=== PATIENT | female | born 1975 | race Caucasian/White ===

== ENCOUNTER 2018-01-27 16:34 | Emergency (ER) | payer OTHER ==
[~2018-01-27] VITALS: Ht 172.7 cm; Wt 82.1 kg
[~2018-01-27 16:34] MED LIST: NAPR550 PO
[2018-01-27 17:26] LABS: Source, Urine Clean Catch
[2018-01-27 17:34] LABS: Appearance, Urine Clear (Clear); Bilirubin, Urine Neg (Neg); Blood, Urine 3+ (Neg); Color, Urine Yellow (P-Yellow); Glucose Qualitative, Urine Neg (Neg); Ketones, Urine 1+ (Neg); Leukocyte Esterase, Urine 1+ (Neg); Nitrite, Urine Neg (Neg); Protein, Urine Neg (Neg); Specific Gravity, Urine 1.025 (1.003-1.022); Urobilinogen, Urine NORM (Normal)
[2018-01-27 17:40] LABS: BASOPHILS ABSOLUTE AUTO 0.08 K/mm3 (0.00-0.23); BASOPHILS PERCENT AUTO 1 % (0-2); EOSINOPHILS ABSOLUTE AUTO 0.25 K/mm3 (0.00-0.68); EOSINOPHILS PERCENT AUTO 3 % (0-6); Hematocrit 40.3 % (33.0-51.0); Hemoglobin 13.6 g/dL (11.5-16.0); IMMATURE GRAN ABSOLUTE AUTO 0.02 K/mm3 (0.00-0.10); IMMATURE GRAN PERCENT AUTO 0 % (0-1); LYMPHOCYTES ABSOLUTE AUTO 4.25 K/mm3 (0.84-5.20); LYMPHOCYTES PERCENT AUTO 43 % (21-46); MONOCYTES ABSOLUTE AUTO 0.75 K/mm3 (0.16-1.47); MONOCYTES PERCENT AUTO 8 % (4-13); Mean Corpuscular HGB 30.1 pg (26.0-34.0); Mean Corpuscular HGB Conc 33.7 g/dL (31.5-36.5); Mean Corpuscular Volume 89 fL (80-100); Mean Platelet Volume 11.4 fL (9.1-12.4); NEUTROPHILS ABSOLUTE AUTO 4.63 K/mm3 (1.96-9.15); NEUTROPHILS PERCENT AUTO 46 % (41-73); Platelet Count 307 K/mm3 (150-400); RDW Coefficient Variation 13.1 % (11.7-14.2); Red Blood Cell Count 4.52 M/mm3 (3.80-5.20); White Blood Cell Count 9.98 K/mm3 (4.00-11.30)
[2018-01-27 17:52] LABS: Mucus Light ([, 0-Heavy])
[2018-01-27 17:53] LABS: Bacteria Few /hpf; Squamous Epithelial Cells Few /hpf (Few); White Blood Cells, Urine 0-2 /hpf (0-5)
[2018-01-27 17:55] LABS: Alanine Aminotransfer (ALT/SGP 23 U/L (12-78); Albumin, Blood 4.3 g/dL (3.4-5.0); Albumin/Globulin Ratio 1.1 (0.8-1.8); Alk Phos 64 U/L (50-136); Anion Gap 9 mmol/L (6-16); Aspartate Aminotrans (AST/SGOT 15 U/L (12-37); Bilirubin, Total 0.3 mg/dL (0.1-1.0); Blood Urea Nitrogen 13 mg/dL (8-24); Bun/Creatinine Ratio 15.9 (12.0-20.0); CO2, Blood 22 mmol/L (21-32); Chloride, Blood 108 mmol/L (98-108); Creatinine, Blood 0.82 mg/dL (0.40-1.00); Glomerular Filtration Rate >60 (60-); Glucose, Blood 86 mg/dL (70-99); Potassium, Blood 3.5 mmol/L (3.5-5.5); Sodium, Blood 139 mmol/L (136-145); Total Protein, Blood 8.3 g/dL (6.4-8.2)
[2018-01-27] MEDS ORDERED: Percocet 10-321 EACH PO (19:04)
[2018-01-27] MEDS ORDERED: CEPH500 PO (19:04)
[2018-01-27] MEDS ORDERED: Doxycycline Hy100 MG PO (19:04)
== END 2018-01-27 19:20 | disposition home or self-care (01) ==
LOC: ER 16:34
PROVIDERS: Emergency Medicine
DX: N39.0 Urinary tract infection, site not specified (principal); F17.210 Nicotine dependence, cigarettes, uncomplicated
CPT/HCPCS: 36415; 74177; 80053; 81001; 81025; 85025; 87086; 96361; 96372; 96374; 96375; 99284-25; J0696; J2405; J3010; J7030; Q9967

== ENCOUNTER → 2018-02-03 | Outpatient (CLI) | payer OTHER ==
[~2018-02-03] MED LIST changes: +CEPH500 PO; +Doxycycline Hy100 MG PO; +Percocet 10-321 EACH PO
[2018-02-10 18:07] LABS: CHLAMYDIA BY NAA Negative (Negative); GONOCOCCUS BY NAA Negative (Negative); HPV 16 Negative (Negative); HPV 18 Negative (Negative); HPV OTHER HR TYPES Negative (Negative); TRICH VAG BY NAA Positive (Negative)
== END ==
LOC: LAB 15:27 → LAB SHORT 15:27
PROVIDERS: Obstetrics & Gynecology
DX: Z01.419 Encounter for gynecological examination (general) (routine) without abnormal findings (principal); Z11.3 Encounter for screening for infections with a predominantly sexual mode of transmission
CPT/HCPCS: 87491; 87591; 87624; 87661; G0123

== ENCOUNTER → 2018-07-13 | Outpatient (CLI) | payer OTHER ==
[2018-07-16 00:10] LABS: CHLAMYDIA TRACHOMATIS, NAA Negative (Negative); NEISSERIA GONORRHOEAE, NAA Negative (Negative)
== END | disposition home or self-care (01) ==
LOC: LAB 17:28 → LAB SHORT 17:28
PROVIDERS: Nurse Practitioner Family
DX: R10.2 Pelvic and perineal pain (principal)
CPT/HCPCS: 87086; 87491; 87591

== ENCOUNTER → 2020-12-25 | Outpatient (CLI) | payer OTHER ==
[2020-12-28 14:12] LABS: CHLAMYDIA BY NAA Negative (Negative); GONOCOCCUS BY NAA Negative (Negative); HPV 16 Negative (Negative); HPV 18 Negative (Negative); HPV OTHER HR TYPES Negative (Negative); TRICH VAG BY NAA Negative (Negative)
== END ==
LOC: LAB SHORT 14:07 → LAB 14:07 → LAB UCHC 14:07
PROVIDERS: Family Medicine
DX: Z01.419 Encounter for gynecological examination (general) (routine) without abnormal findings (principal)
CPT/HCPCS: 87491; 87591; 87624; 87661; G0123

== ENCOUNTER 2022-04-24 10:00 | Emergency (ER) | payer OTHER ==
[~2022-04-24] VITALS: Ht 172.7 cm; Wt 88.5 kg
[2022-04-24 10:31] LABS: Source, Urine Clean Catch
[2022-04-24 10:37] LABS: Bilirubin, Urine Neg (Neg); Blood, Urine 3+ (Neg); Glucose Qualitative, Urine Neg (Neg); Ketones, Urine Neg (Neg); Leukocyte Esterase, Urine Neg (Neg); Nitrite, Urine Neg (Neg); Protein, Urine Neg (Neg); Urobilinogen, Urine NORM (Normal)
[2022-04-24] MEDS ORDERED: OMEP20ER (10:40)
[2022-04-24 10:50] LABS: BASOPHILS ABSOLUTE AUTO 0.13 K/mm3 (0.00-0.23); BASOPHILS PERCENT AUTO 1 % (0-2); EOSINOPHILS ABSOLUTE AUTO 1.28 K/mm3 (0.00-0.68); EOSINOPHILS PERCENT AUTO 12 % (0-6); Hematocrit 40.9 % (33.0-51.0); Hemoglobin 13.9 g/dL (11.5-16.0); IMMATURE GRAN ABSOLUTE AUTO 0.01 K/mm3 (0.00-0.10); IMMATURE GRAN PERCENT AUTO 0 % (0-1); LYMPHOCYTES ABSOLUTE AUTO 3.82 K/mm3 (0.84-5.20); LYMPHOCYTES PERCENT AUTO 36 % (21-46); MONOCYTES ABSOLUTE AUTO 0.72 K/mm3 (0.16-1.47); MONOCYTES PERCENT AUTO 7 % (4-13); Mean Corpuscular HGB 29.3 pg (26.0-34.0); Mean Corpuscular Volume 86 fL (80-100); Mean Platelet Volume 11.4 fL (9.1-12.4); NEUTROPHILS ABSOLUTE AUTO 4.78 K/mm3 (1.96-9.15); NEUTROPHILS PERCENT AUTO 45 % (41-73); Platelet Count 337 K/mm3 (150-400); RDW Coefficient Variation 13.2 % (11.7-14.2); RDW Standard Deviation 41.4 fL (35.1-46.3); Red Blood Cell Count 4.75 M/mm3 (3.80-5.20); White Blood Cell Count 10.74 K/mm3 (4.00-11.30)
[2022-04-24 10:50] LABS: Appearance, Urine Clear (Clear); Color, Urine Yellow (P-Yellow)
[2022-04-24 10:52] LABS: Amorphous Light (0-Heavy); Bacteria Rare /hpf; Red Blood Cells, Urine 0-2 /hpf (0-2); Squamous Epithelial Cells Rare /hpf (Few); White Blood Cells, Urine 0-2 /hpf (0-5)
[2022-04-24 11:01] LABS: Albumin/Globulin Ratio 0.9 (0.8-1.8); Bilirubin, Total 0.5 mg/dL (0.1-1.0); Calcium, Blood 9.7 mg/dL (8.5-10.1); Creatinine, Blood 0.62 mg/dL (0.40-1.00); Globulin, Blood 4.6 g/dL (2.2-4.0); Total Protein, Blood 8.6 g/dL (6.4-8.2)
[2022-04-24] MEDS ORDERED: OXYC5 PO (13:11)
== END 2022-04-24 13:31 | disposition home or self-care (01) ==
LOC: ER 10:00
PROVIDERS: Physician Assistant
DX: D25.1 Intramural leiomyoma of uterus (principal); F17.210 Nicotine dependence, cigarettes, uncomplicated
CPT/HCPCS: 36415; 76830; 76856; 80053; 81001; 84703; 85025; 94640; 94664; A9270; J1170; J2405

== ENCOUNTER 2022-08-24 07:39 | Inpatient (IN) | payer OTHER ==
[~2022-08-24] VITALS: Ht 172.7 cm; Wt 96.1 kg
[~2022-08-24 07:39] MED LIST changes: +OMEP20ER; +OXYC5 PO
[2022-08-24 08:23] LABS: BASOPHILS ABSOLUTE AUTO 0.19 K/mm3 (0.00-0.23); BASOPHILS PERCENT AUTO 1 % (0-2); EOSINOPHILS PERCENT AUTO 0 % (0-6); Hematocrit 40.1 % (33.0-51.0); Hemoglobin 13.6 g/dL (11.5-16.0); IMMATURE GRAN ABSOLUTE AUTO 0.52 K/mm3 (0.00-0.10); IMMATURE GRAN PERCENT AUTO 1 % (0-1); LYMPHOCYTES ABSOLUTE AUTO 2.76 K/mm3 (0.84-5.20); LYMPHOCYTES PERCENT AUTO 7 % (21-46); MONOCYTES ABSOLUTE AUTO 1.96 K/mm3 (0.16-1.47); MONOCYTES PERCENT AUTO 5 % (4-13); Mean Corpuscular HGB 28.9 pg (26.0-34.0); Mean Corpuscular HGB Conc 33.9 g/dL (31.5-36.5); Mean Corpuscular Volume 85 fL (80-100); Mean Platelet Volume 11.5 fL (9.1-12.4); NEUTROPHILS ABSOLUTE AUTO 33.38 K/mm3 (1.96-9.15); NEUTROPHILS PERCENT AUTO 86 % (41-73); Platelet Count 290 K/mm3 (150-400); RDW Coefficient Variation 13.9 % (11.7-14.2); RDW Standard Deviation 43.5 fL (35.1-46.3); Red Blood Cell Count 4.71 M/mm3 (3.80-5.20); White Blood Cell Count 38.81 K/mm3 (4.00-11.30)
[2022-08-24 08:36] LABS: Calcium, Blood 8.9 mg/dL (8.5-10.1); Creatinine, Blood 0.67 mg/dL (0.40-1.00); Potassium, Blood 3.7 mmol/L (3.5-5.5)
[2022-08-24 09:13] LABS: Influenza A, PCR NEGATIVE (NEGATIVE); Influenza B, PCR NEGATIVE (NEGATIVE); Resp Syncytial Virus, PCR NEGATIVE (NEGATIVE); SARS-Cov-2 (COVID-19) PCR, MMC NEGATIVE (NEGATIVE)
[2022-08-24] MEDS ORDERED: VENLAFAXINE H37.5 M1 PO (10:54)
[2022-08-24] MEDS ORDERED: PREGABALIN100 MG PO (10:55)
[2022-08-24 13:00] LABS: Source, Urine Clean Catch
[2022-08-24 13:14] LABS: Appearance, Urine Clear (Clear); Bilirubin, Urine Neg (Neg); Blood, Urine 3+ (Neg); Color, Urine Yellow (P-Yellow); Glucose Qualitative, Urine 3+ (Neg); Ketones, Urine 3+ (Neg); Leukocyte Esterase, Urine Neg (Neg); Nitrite, Urine Neg (Neg); Protein, Urine 2+ (Neg); Urobilinogen, Urine NORM (Normal)
[2022-08-24 13:32] LABS: Amorphous Light (0-Heavy); Bacteria Few /hpf; Red Blood Cells, Urine 0-2 /hpf (0-2); White Blood Cells, Urine 0-2 /hpf (0-5)
[2022-08-24 13:34] LABS: Mucus Light (0-Heavy); Squamous Epithelial Cells Rare /hpf (Few)
--- NOTE | 2022-08-24 18:42 | NUR ---
SHIFT SUMMARY PTN WAS ED ADMIT FOR SEPSIS PNEUMONIA. PTN PRESENT THROUGHOUT SHIFT. PTN WITH PRODUCTIVE COUGH, TIGHT CHEST WITH WHEEZING IN ALL LUNG ARRIAZA. DUONEB ORDERED AND GIVEN. PTN FELT MUCH BETTER. CONTINUES TO HAVE DRY, BUT PRODUCTIVE COUGH THROUGHOUT SHIFT. PTN HAVING DIFFICULTY RELAXING, ON AND OFF RESTS. TWO BAGS OF NS ORDERED, WELL ANTIBIOTICS. PTN DID HAVE FEVER IN ER, GIVE TYLENOL. PTN HAS NO FEVER CURRENTLY. PTN 1-ASSIST WITH USE OF WALKER DUE TO CERVICAL BACK FUSION IN MAY 2022. SHE DOES NOT WALK MUCH AT HOME. CONTINUE TO MONITOR.
[2022-08-25 01:08] LABS: Adenovirus Not Detected (NOT DETECT); Coronavirus 229E Not Detected (NOT DETECT); Coronavirus HKU1 Not Detected (NOT DETECT); Coronavirus NL63 Not Detected (NOT DETECT); Coronavirus OC43 Not Detected (NOT DETECT); Human Metapneumovirus Not Detected (NOT DETECT); Human Rhinovirus/Enterovirus Not Detected (NOT DETECT); Influenza A/H1 Not Detected (NOT DETECT); SARS-Cov-2 (COVID-19), BioFire Not Detected (NOT DETECT)
[2022-08-25 01:09] LABS: Bordetella pertussis Not Detected (NOT DETECT); Chlamydophila pneumoniae Not Detected (NOT DETECT); Influenza A/2009-H1 Not Detected (NOT DETECT); Influenza A/H3 Not Detected (NOT DETECT); Influenza B Not Detected (NOT DETECT); Mycoplasma pneumoniae Not Detected (NOT DETECT); Parainfluenza Virus 1 Not Detected (NOT DETECT); Parainfluenza Virus 2 Not Detected (NOT DETECT); Parainfluenza Virus 3 Not Detected (NOT DETECT); Parainfluenza Virus 4 Not Detected (NOT DETECT); Respiratory Syncytial Virus Not Detected (NOT DETECT)
[2022-08-25 05:31] LABS: Hematocrit 33.9 % (33.0-51.0); Hemoglobin 11.2 g/dL (11.5-16.0); Mean Corpuscular HGB 28.9 pg (26.0-34.0); Mean Corpuscular Volume 87 fL (80-100); Platelet Count 259 K/mm3 (150-400); RDW Coefficient Variation 14.4 % (11.7-14.2); RDW Standard Deviation 46.1 fL (35.1-46.3); Red Blood Cell Count 3.88 M/mm3 (3.80-5.20); White Blood Cell Count 32.23 K/mm3 (4.00-11.30)
--- NOTE | 2022-08-25 06:00 | NUR ---
END OF SHIFT NURSING REPORT - PM Patient is a 46 y/o female admitted with Sepsis pneumonia after presenting with cough, fever, congestion x3 days and hx of COPD. Tested positive for Strep throat. States weakness and requires walker for ambulation. Independent in bed, and tolerating oral fluids. On Vancomycin coverage and NS fluid resuscitation. No acute events overnight.
[2022-08-25 06:01] LABS: Bun/Creatinine Ratio 14.9 (12.0-20.0); Calcium, Blood 9.2 mg/dL (8.5-10.1); Creatinine, Blood 0.61 mg/dL (0.40-1.00); Potassium, Blood 3.9 mmol/L (3.5-5.5)
--- NOTE | 2022-08-25 19:26 | NUR ---
SHIFT SUMMARY PTN FEELING BETTER BY HER REPORT, AND WAS ABLE TO RELAX A LITTLE, BUT LATER SHE COMPLAINED OF SOB AND NOT GETTING NEBULIZER TREATMENTS MORE OFTEN. SHE REPORTED THAT SHE DOES NEBULIZER TREATMENTS Q4H AT HOME. ANXIETY MAY HAVE BEEN A FACTOR. ISOLATION WAS PLACED START OF SHIFT, BUT DISCONTINUED PER RECOMMENDATIONS SAME SHIFT. CONTINUE TO MONITOR.
[2022-08-26 04:56] LABS: BASOPHILS PERCENT AUTO 1 % (0-2); EOSINOPHILS ABSOLUTE AUTO 0.24 K/mm3 (0.00-0.68); EOSINOPHILS PERCENT AUTO 1 % (0-6); Hemoglobin 10.9 g/dL (11.5-16.0); Mean Corpuscular HGB 28.9 pg (26.0-34.0); Mean Corpuscular Volume 88 fL (80-100); Platelet Count 279 K/mm3 (150-400); RDW Coefficient Variation 14.3 % (11.7-14.2); RDW Standard Deviation 46.1 fL (35.1-46.3); Red Blood Cell Count 3.77 M/mm3 (3.80-5.20); White Blood Cell Count 18.47 K/mm3 (4.00-11.30)
[2022-08-26 05:19] LABS: Albumin, Blood 3.1 g/dL (3.4-5.0); Anion Gap 6 mmol/L (6-16); Blood Urea Nitrogen 12 mg/dL (8-24); Bun/Creatinine Ratio 16.5 (12.0-20.0); CO2, Blood 28 mmol/L (21-32); Calcium, Blood 8.8 mg/dL (8.5-10.1); Chloride, Blood 105 mmol/L (98-108); Creatinine, Blood 0.73 mg/dL (0.40-1.00); Glomerular Filtration Rate 104 (60-); Glucose, Blood 132 mg/dL (70-99); Phosphorus, Blood 4.5 mg/dL (2.5-4.9); Potassium, Blood 3.4 mmol/L (3.5-5.5); Sodium, Blood 139 mmol/L (136-145)
[2022-08-26 05:30] LABS: IMMATURE GRAN ABSOLUTE AUTO 0.08 K/mm3 (0.00-0.10); IMMATURE GRAN PERCENT AUTO 0 % (0-1); LYMPHOCYTES ABSOLUTE AUTO 4.92 K/mm3 (0.84-5.20); LYMPHOCYTES PERCENT AUTO 27 % (21-46); MONOCYTES ABSOLUTE AUTO 1.15 K/mm3 (0.16-1.47); MONOCYTES PERCENT AUTO 6 % (4-13); NEUTROPHILS ABSOLUTE AUTO 11.98 K/mm3 (1.96-9.15); NEUTROPHILS PERCENT AUTO 65 % (41-73)
--- NOTE | 2022-08-26 06:00 | NUR ---
END OF SHIFT NURSING REPORT - PM Patient is a 46 y/o female admitted with Sepsis pneumonia after presenting with cough, fever, congestion x3 days and hx of COPD. Tested positive for Strep throat. States weakness and requires walker for ambulation. Independent in bed, and tolerating oral fluids. Vanc T 10, dose frequency increased from Q12 to Q8hrs. Medicated with Hydroxyzine 25mg for increased anxiety associated with new COPD diagnosis and episodes of air hunger. Duoneb frequency also increased from q6hr to Q4hr. PRN Tylenol also administered for headache at bedtime. Am Labs collected.
--- NOTE | 2022-08-26 08:00 | NUR ---
pt laying in bed watching tv, a/ox3, pleasant and cooperative with care, in good spirits this am, states feeling better but has a harsh dry nonproductive cough, on r/a, states she had a good night, lungs have light insp wheeze t/o, resp even and unlabored at rest, hrr, no edema noted, ppp+2, cap refill <3 sec, vs stable, afebrile, iv site is slightly puffy with flush, after administering rocephin is more puffy and tender, asked charge to place another line, she was not successful, will ask for power glide, btx4, abd flat soft nontender, voids without diff, skin c/w/d, nicki hardin, call light in reach.
--- NOTE | 2022-08-26 18:06 | NUR ---
pt has had seveal doses of tylenol for headache today, did become a bit sob this evening, sats 97%, but called for breathing tx, she reports she is feeling much better than yesterday, no acute changes or needs, call light in reach.
[2022-08-27 05:29] LABS: Hematocrit 35.4 % (33.0-51.0); Hemoglobin 11.8 g/dL (11.5-16.0); Mean Corpuscular HGB 28.6 pg (26.0-34.0); Mean Corpuscular HGB Conc 33.3 g/dL (31.5-36.5); Mean Corpuscular Volume 86 fL (80-100); Mean Platelet Volume 11.5 fL (9.1-12.4); Platelet Count 333 K/mm3 (150-400); RDW Coefficient Variation 13.8 % (11.7-14.2); RDW Standard Deviation 43.5 fL (35.1-46.3); Red Blood Cell Count 4.12 M/mm3 (3.80-5.20); White Blood Cell Count 10.81 K/mm3 (4.00-11.30)
[2022-08-27 06:04] LABS: Albumin, Blood 3.2 g/dL (3.4-5.0); Anion Gap 4 mmol/L (6-16); Blood Urea Nitrogen 12 mg/dL (8-24); Bun/Creatinine Ratio 17.1 (12.0-20.0); CO2, Blood 31 mmol/L (21-32); Calcium, Blood 9.7 mg/dL (8.5-10.1); Chloride, Blood 103 mmol/L (98-108); Glomerular Filtration Rate 109 (60-); Glucose, Blood 109 mg/dL (70-99); Phosphorus, Blood 5.1 mg/dL (2.5-4.9); Potassium, Blood 3.8 mmol/L (3.5-5.5); Sodium, Blood 138 mmol/L (136-145)
[2022-08-27] MEDS ORDERED: Tessalon200 MG PO (11:51)
[2022-08-27] MEDS ORDERED: VISBIOME 112.51 EACH PO (13:02)
[2022-08-27] MEDS ORDERED: ALBU90OI INH (13:03)
[2022-08-27] MEDS ORDERED: AZIT500 PO (13:06)
[2022-08-27] MEDS ORDERED: CEFD300 PO (13:07)
--- NOTE | 2022-08-27 13:19 | NUR ---
PT DISCHARGED AT 1315 TAKEN DOWN TO [facility]. MEDICATIONS FAXED TO [facility]. PICC LINE REMOVED PRIOR TO DISCHARGE. NO DISTRESS NOTED.
== END 2022-08-27 13:15 | disposition home or self-care (01) | DRG 871 ==
LOC: ER 07:39 → MEDS 07:40
PROVIDERS: Emergency Medicine; ADMIT Internal Medicine
DX: A40.0 Sepsis due to streptococcus, group A (principal); J15.4 Pneumonia due to other streptococci; E87.1 Hypo-osmolality and hyponatremia; Q89.01 Asplenia (congenital); J44.0 Chronic obstructive pulmonary disease with (acute) lower respiratory infection; R73.9 Hyperglycemia, unspecified; J02.0 Streptococcal pharyngitis; E87.6 Hypokalemia; G47.00 Insomnia, unspecified; G62.9 Polyneuropathy, unspecified; Z20.822 Contact with and (suspected) exposure to COVID-19; Z90.81 Acquired absence of spleen; Z79.899 Other long term (current) drug therapy; Z79.891 Long term (current) use of opiate analgesic; Z90.49 Acquired absence of other specified parts of digestive tract; Z98.890 Other specified postprocedural states; Z98.51 Tubal ligation status; Z98.1 Arthrodesis status; Z87.891 Personal history of nicotine dependence
CPT/HCPCS: 0202U; 0241U; 36415; 71045; 80048; 80069; 80202; 81001; 83605; 85025; 85027; 87040; 87070; 87147; 87205; 87430; 87449; 94640; 94644; 94664; 94760; 96365; 96367; 96375; 99284-25; A9270; J0456; J0696; J1650; J2405; J2930; J3370; J7030; J7050